=== PATIENT | male | born 1990 | race Caucasian/White ===

== ENCOUNTER 2016-05-15 12:05 | Emergency (ER) | payer OTHER ==
[~2016-05-15] VITALS: Ht 190.5 cm; Wt 96.6 kg
[2016-05-15 12:11] VITALS: TEMP 37.1; Ht 190.5 cm; Wt 96.6 kg
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
[2016-05-15] MEDS ORDERED: IBUP-1050 PO (14:03)
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
[2016-05-15] MEDS ORDERED: OXYC-57 PO (14:31)
[2016-05-15 14:35] VITALS: BP 140/81; PULSE 65; O2SAT 98
== END 2016-05-15 14:47 | disposition home or self-care (01) ==
LOC: C.EDB 12:08 → C.EDD 14:47
DX: S22.31XA Fracture of one rib, right side, initial encounter for closed fracture (principal); S63.501A Unspecified sprain of right wrist, initial encounter; S60.222A Contusion of left hand, initial encounter; S16.1XXA Strain of muscle, fascia and tendon at neck level, initial encounter; F17.200 Nicotine dependence, unspecified, uncomplicated; V23.4XXA Motorcycle driver injured in collision with car, pick-up truck or van in traffic accident, initial encounter